=== PATIENT | female | born 1990 | race Caucasian/White ===

== ENCOUNTER 2017-03-20 20:09 | Inpatient (IN) | payer OTHER ==
[2017-03-20 20:27] VITALS: BMI 30.8
[2017-03-20] MEDS: Lactated Ringer's 1,000 ML IV SCH (21:00)
--- NOTE | 2017-03-20 21:28 | OBHP ---
Datetime: 03/20/2017 21:27 Vital Signs Provider: Reviewed; Within Normal Limits Dilatation, Provider: ft Effacement, Provider: 50 Station, Provider: -3 Datetime: 03/20/2017 21:05 IP Adm Impression: Term, intrauterine IP Chief Complaint Other: abdominal pain IP Adm Impression Other: early labor IP Admit Plan: Admit to unit Admit Comment, IP Provider: Chief compalint- HPI 27 y/o at 39.1 wga here with c/o abdominal tightening and pain. Patient denies nausea, vomiting, headache, chest pain, shortness of breath, numbness or tingling i n hands and feet course uncomplicated PMH denies PSH denes OBGYN HX Social hx denies tobacco,alcohol or illicit drug use Exam see exam section A/P 27 y/o at 39.1 wga in early labor.gbs negative -admit -management as per dr dominguez Pelvic Type - PN: Adequate Extremities - PN: Normal Abdomen - PN: Normal Back - PN: Normal Lungs - PN: Normal Heart - PN: Normal Neurologic - PN: Normal General - PN: Normal Weight - Estimated: 3200 Presentation-Admit: Vertex Contraction Comments Provider: irregular contractions Gestation - Est Wks by US: 39.1 IP Hx Assessment: The History has been Reviewed and is Current EGA AdmitDate IP: 39.1 IP Chief Complaint: Other FHR Category Provider Fetus A: Category I Genitourinary Exam: Normal DTRs - PN: Normal
--- NOTE | 2017-03-20 21:30 | OBPN ---
Datetime: 03/20/2017 21:27 IP Progress Impression: Reassuring heart rate IP Procedures: Sterile Vag Exam IP Progress Note Comment: Askwd by dr montalvo to place cervidil fht reactive and cat1 sve ft/50/-3 Cervidil placed continue to monitor closely Vital Signs Provider: Reviewed; Within Normal Limits FHR Category Provider Fetus A: Category I Dilatation, Provider: ft Effacement, Provider: 50 Station, Provider: -3 Datetime: 03/20/2017 21:05 Contraction Comments Provider: irregular contractions Gestation - Est Wks by US: 39.1 Weight - Estimated: 3200 Presentation-Admit: Vertex
[2017-03-20 21:38] LABS: BASO % 0.3 % (0.0-2.0); EOS # 0.1 K/uL (0.0-0.7); EOS % 0.8 % (0.0-4.0); HEMATOCRIT 31.4 % (34.0-47.0); LYMPH # 3.2 K/uL (1.0-4.3); LYMPH % 28.4 % (20.0-40.0); MEAN CELL VOLUME 74.8 fL (81.0-99.0); MEAN CORPUSCULAR HEMOGLOBIN 24.3 pg (27.0-31.0); MEAN CORPUSCULAR HGB CONC 32.5 g/dL (33.0-37.0); MONO # 1.1 K/uL (0.0-0.8); RED CELL DISTRIBUTION WIDTH 14.8 % (11.5-14.5); WHITE BLOOD COUNT 11.3 K/uL (4.8-10.8)
[2017-03-20 21:42] LABS: RBC URINE < 1 /hpf (0-3); URINE BACTERIA OCC (<OCC); URINE BILIRUBIN NEGATIVE (NEGATIVE); URINE BLOOD NEGATIVE (NEGATIVE); URINE COLOR Colorless (YELLOW); URINE GLUCOSE (UA) NORMAL (Normal); URINE KETONE NEGATIVE (NEGATIVE); URINE LEUKOCYTE ESTERASE NEG Leu/uL (Negative); URINE PROTEIN NEGATIVE (NEGATIVE); URINE UROBILINOGEN NORMAL mg/dL (0.2-1.0); WBC URINE < 1 /hpf (0-5)
[2017-03-20 21:48] LABS: CHLORIDE 103 mmol/L (98-107); POTASSIUM 3.7 mmol/L (3.6-5.2); SODIUM 134 mmol/L (132-148)
[2017-03-20 21:50] LABS: BILIRUBIN,TOTAL 0.5 mg/dL (0.2-1.3); CARBON DIOXIDE 22 mmol/L (22-30); GFR AFRICAN-AMERICAN > 60
[2017-03-20 21:51] LABS: ALKALINE PHOSPHATASE 155 U/L (38-126); ALT/SGPT 13 U/L (9-52); AST/SGOT 14 U/L (14-36); BLOOD UREA NITROGEN 4 mg/dL (7-17); CALCIUM 8.3 mg/dl (8.6-10.4); GLUCOSE,RANDOM 98 mg/dL (65-105); TOTAL PROTEIN 6.5 g/dL (6.3-8.3)
[2017-03-21] MEDS: Lactated Ringer's 1,000 ML IV SCH (06:57)
--- NOTE | 2017-03-21 08:53 | US ---
PROCEDURE: Limited obstetrical ultrasound examination and biophysical profile HISTORY: BPP WITH ESTIMATED WEIGHT COMPARISON: Not available TECHNIQUE: Transabdominal FINDINGS: There is single live intrauterine gestation in cephalic presentation. The heart rate is 132 beats per minute. A normal quantity of amniotic fluid is visualized. The FAMILIA is 14.8 cm. The cervix is closed and measures 2.1 cm in length. Normal anterior placenta is identified. There is no evidence of placenta previa. biometry yields a gestational age of 37 weeks 4 days. The CHRISTINA by ultrasound is 04/07/2017. The EFW is 3270 g. A biophysical profile examination yields a score of 8 out of 8. IMPRESSION: Single live intrauterine gestation of approximately 37 weeks 4 days. Cephalic presentation. No evidence of placenta previa. EFW is 3270 g. Cervix measures 2.1 cm in length. Anterior placenta. Biophysical profile score is 8 out of 8.
[2017-03-21] MEDS ORDERED: cefOXitin IV 2 gm in Dextrose 2 GM/50 ML BAG IVPB ONE ×2 (18:31→18:41)
[2017-03-21] MEDS ORDERED: Sodium Citrate/Citric Acid 15 ml Sol PO ONE (18:31)
--- NOTE | 2017-03-21 18:36 | OBPN ---
Datetime: 03/21/2017 18:33 IP Procedures: Sterile Vag Exam FHR - Baseline A Provider: 130 IP Progress Note Comment: pt was examined at bed side ve ft/50/-3 unchanged primry section called by dr mills. he will take informed consent Vital Signs Provider: Reviewed; Within Normal Limits NICHD Accel Fetus A IP Provider: [id number] FHR Category Provider Fetus A: Category I NICHD Variability Prov Fetus A: Moderate 6-25bpm Dilatation, Provider: ft Effacement, Provider: 50 Station, Provider: _4
[2017-03-21] MEDS ORDERED: Sodium Citrate/Citric Acid 15 ml Sol ONE (18:41)
[2017-03-21] MEDS ORDERED: Oxytocin 20 units in LR 2,000 ML IV ONE (18:42)
[2017-03-21] MEDS ORDERED: Phenylephrine 10 mg/ml Inj ONE (19:08)
[2017-03-21] MEDS ORDERED: Morphine 1 mg/ml preservative-free Inj(Duramorph) ONE (19:08)
[2017-03-21] MEDS ORDERED: Oxycodone/Acetaminophen 5/325 mg Tab PO PRN (19:20)
[2017-03-21] MEDS ORDERED: Lidocaine 2% MPF (5 ml) Inj ONE (19:52)
[2017-03-22] MEDS ORDERED: DiphenhydrAMINE 50 mg/ml Inj IVP STA (01:02)
[2017-03-22 07:36] LABS: HEMATOCRIT 27.8 % (34.0-47.0); MEAN CELL VOLUME 75.5 fL (81.0-99.0); MEAN CORPUSCULAR HEMOGLOBIN 24.6 pg (27.0-31.0); MEAN CORPUSCULAR HGB CONC 32.6 g/dL (33.0-37.0); MEAN PLATELET VOLUME 10.1 fL (7.2-11.7); WHITE BLOOD COUNT 11.1 K/uL (4.8-10.8)
--- NOTE | 2017-03-22 09:09 | OBPPN ---
Datetime: 03/22/2017 09:06 PP Pain Prov: Within normal limits PP Nausea Prov: Denies PP Flatus Prov: No PP Abdomen/Uterus Prov: Normal PP Lochia Prov: Normal PP Extremities Prov: Normal PP C/S Incision Prov: Normal PP Comments Phys Exam Prov: fudus below um ext no edema,no calf ten incision clean and dry PP Impression Prov: Normal progression PP Plan Prov: Continue present management PP Progress Note Prov: pt was seen at bed side, pain under control, no n/v, tolerating deit, waiting to void ,min lohia, flatus- pod#1s/p c/s deit cbc encourage ambulation cont pain management cont post op care Vital Signs Provider PP: Reviewed; Within Normal Limits
[2017-03-22] MEDS: Oxycodone/Acetaminophen 5/325 mg Tab PO PRN (16:27)
[2017-03-23] MEDS: Oxycodone/Acetaminophen 5/325 mg Tab PO PRN ×2 (09:36→19:00)
[2017-03-23 16:16] VITALS: RESP 20; O2SAT 98
[2017-03-24 00:04] VITALS: BP 107/57; PULSE 85; TEMP 97.2
[2017-03-24] MEDS: Oxycodone/Acetaminophen 5/325 mg Tab PO PRN (12:00)
--- NOTE | 2017-03-24 13:39 | OBPPN ---
Datetime: 03/24/2017 13:38 PP Pain Prov: Within normal limits PP Breasts Prov: Normal PP Abdomen/Uterus Prov: Normal PP Lochia Prov: Normal PP Vulva/Perineum Prov: Normal PP C/S Incision Prov: Normal PP Impression Prov: Normal progression PP Plan Prov: Discharge Datetime: 03/23/2017 13:35 PP Progress Prov: Normal PP Progress Note Prov: No C/O VS Stable IP PP Procedures: None
--- NOTE | 2017-03-24 13:41 | OBPPN ---
Datetime: 03/24/2017 13:38 PP Progress Note Prov: Vicodin Augmentin given
--- NOTE | 2017-03-24 13:43 | OBDCSUM ---
Datetime: 03/24/2017 09:31 Discharged to, Provider: Home Follow up at, Provider: gene Torres Instr Activity: Normal activity Disch Instr Diet: Regular Discharge Instructions, Provider: Routine instructions given Discharge Diagnosis, Provider: Term Delivered Discharge Time: 03/24/2017 11:30 Follow up in weeks, Provider: 03-28-17 Disch Referrals: None Disch Activity Restrictions: No lifting; Minimize stair-climbing; No sexual activity; Nothing in vag maciej - [place], tampons, douche Contraception after Delivery: Not Planning to Use
--- NOTE | 2017-03-24 21:59 | OP ---
PROCEDURE DATE: 03/21/2017 NATURE OF OPERATION: Primary section. SURGEON: Dr. Littlejohn. MOLDING PRESS OPERATOR: Dr. Briggs. QUALITY CONTROL AUDITOR: Dr. Edmond. ANESTHESIA: Spinal. PREOPERATIVE DIAGNOSIS: A 39-40 weeks , cephalopelvic disproportion. POSTOPERATIVE DIAGNOSIS: A live male, 6 pounds 13 ounces, 9 and 9, nuchal cord x 1, vertex and OP. DESCRIPTION OF PROCEDURE: The patient was placed in supine position after the spinal anesthesia. e abdomen was prepped and draped for a Pfannenstiel incision. A Pfannenstiel incision was made betwe en the symphysis pubis and the umbilicus and was carried down to rectus fascia. The fascia was clean ed and incised the length of the incision. The recti were retracted laterally. The transversalis fa scia identified and mobilized superiorly. The peritoneum was then incised the length of the incision . The vesicouterine fold of the visceral peritoneum was identified, incised transversely between the round ligaments. The bladder flap was developed and mobilized inferiorly by blunt dissection. A tr ansverse incision was made into the anterior wall of the lower uterine segment and extended laterally toward the round ligament. Membranes were incised and the amniotic fluid was clear. The patient wa s delivered from the OP position of a living male in good condition at exactly 8:05 p.m. on , 9/9. The presenting part was floating. There was a cord around the neck x 1. The p lacenta was on the posterior wall near the fundus. Membranes and placenta were completely removed ma nually. The uterus was closed in 2 layers with continuous suture of chromic #1 gut, the first layer including myometrium, second layer imbricating the myometrium. The bladder flap was reattached with continuous suture of chromic #2-0 catgut on an atraumatic needle. The uterus was well contracted. T ubes and ovaries were normal. Hemostasis was satisfactory, and lap and sponge counts were reported a s correct. The abdomen was closed in layers, peritoneum continuous suture of chromic #0 catgut on at raumatic needle, fascia running interlocking sutures of 0 Vicryl. Subcutaneous tissue was closed wit h the #2-0 plain catgut and the skin was closed with marcela. The patient tolerated the procedure we ll and was sent to the recovery room in satisfactory condition. Navneet Littlejohn MD cc: 38 TT: 03/24/2017 21:58:44 mn
== END 2017-03-24 13:50 | disposition home or self-care (01) | DRG 766 ==
LOC: C.EROB 20:15 → C.4D 20:17 → C.4M 03-21 23:56
PROVIDERS: ADMIT Obstetrics & Gynecology; ATTEND Obstetrics & Gynecology
PROC: 10D00Z1 Extraction of Products of Conception, Low, Open Approach (ICD-10-PCS; principal; 2017-03-21)
PROC: 3E0P7GC Introduction of Other Therapeutic Substance into Female Reproductive, Via Natural or Artificial Opening (ICD-10-PCS; 2017-03-21)
DX: O64.0XX0 Obstructed labor due to incomplete rotation of fetal head, not applicable or unspecified (principal); O69.81X0 Labor and delivery complicated by cord around neck, without compression, not applicable or unspecified; O33.9 Maternal care for disproportion, unspecified; Z3A.39 39 weeks gestation of pregnancy; Z37.0 Single live birth